=== PATIENT | male | born 1995 | race Caucasian/White ===

== ENCOUNTER 2018-11-26 20:13 | Emergency (ER) | payer SELFPAY ==
[~2018-11-26] VITALS: Ht 175.3 cm; Wt 66.0 kg
[2018-11-26 20:19] VITALS: Ht 175.3 cm; Wt 66.0 kg
[2018-11-26 21:10] VITALS: BP 119/74
== END 2018-11-26 21:10 | disposition home or self-care (01) ==
LOC: ED 20:13
DX: J30.9 Allergic rhinitis, unspecified (principal)